=== PATIENT | male | born 1990 | race Caucasian/White ===

== ENCOUNTER 2016-12-30 10:23 | Emergency (ER) | payer MEDICAID, OTHER ==
[2016-12-30 10:32] VITALS: BP 134/85
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
[2016-12-30] MEDS ORDERED: NORCO 5/325 MG PO ONE (11:09)
[2016-12-30] MEDS ORDERED: NORCO 5/325 MG ONE (11:10)
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
[2016-12-30 11:26] VITALS: PULSE 100; O2SAT 98
== END 2016-12-30 11:25 | disposition home or self-care (01) ==
LOC: ED 10:23
DX: S42.021A Displaced fracture of shaft of right clavicle, initial encounter for closed fracture (principal); W18.09XA Striking against other object with subsequent fall, initial encounter; Y92.812 Truck as the place of occurrence of the external cause
CPT/HCPCS: 71020; 73000; 99284; A9270-GY

== ENCOUNTER 2017-01-01 14:45 | Emergency (ER) | payer OTHER ==
[2017-01-01] MEDS ORDERED: TORAdol 30 mg Injection IM ONE (15:07)
[2017-01-01] MEDS ORDERED: TORAdol 30 mg Injection ONE (15:13)
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
[2017-01-01 15:54] VITALS: BP 119/78; PULSE 78; O2SAT 100
== END 2017-01-01 15:53 | disposition home or self-care (01) ==
LOC: ED 14:45
DX: S42.001D Fracture of unspecified part of right clavicle, subsequent encounter for fracture with routine healing (principal); W19.XXXD Unspecified fall, subsequent encounter
CPT/HCPCS: 96372; 99283; 99284; J1885

== ENCOUNTER 2017-01-21 19:50 | Emergency (ER) | payer OTHER ==
[2017-01-21] MEDS ORDERED: NORCO 5/325 MG PO ONE (20:14)
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
[2017-01-21] MEDS ORDERED: NORCO 5/325 MG ONE (20:26)
[2017-01-21 21:16] VITALS: BP 133/75; PULSE 99
[2017-01-21 21:56] VITALS: O2SAT 99
--- NOTE | 2017-01-21 22:12 | XRAY ---
Indication: Pain. Comparison: None 3 views of the right shoulder demonstrates nondisplaced healing mid clavicle shaft fracture. No other bony, articular, or soft tissue abnormalities.
== END 2017-01-21 22:03 | disposition home or self-care (01) ==
LOC: ED 19:50
DX: S42.001A Fracture of unspecified part of right clavicle, initial encounter for closed fracture (principal); X50.0XXA Overexertion from strenuous movement or load, initial encounter
CPT/HCPCS: 73030; 99282; A9270-GY

== ENCOUNTER 2017-04-13 10:25 | Emergency (ER) | payer SELFPAY ==
[2017-04-13] MEDS ORDERED: MORPHINE SULFATE 10 MG/ML IV ONE (10:50)
[2017-04-13] MEDS ORDERED: BENADRYL 50 MG/ML IV ONE (10:50)
[2017-04-13] MEDS ORDERED: Sodium Chloride 0.9% 1000 ML 1,000 ML IV STA (10:50)
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
[2017-04-13 11:03] LABS: Collection Type VOID
[2017-04-13 11:04] LABS: Bilirubin NEGATIVE (NEGATIVE); COMPLETE URINE MICROSCOPIC? YES; Glucose NEGATIVE (NEGATIVE); Leukocyte Esterase NEGATIVE (NEGATIVE)
[2017-04-13 11:06] LABS: Mean Cell Volume 95.4 fl (78-100); Mean Corpuscular Hemoglobin 31.5 pg (26-32); Mean Platelet Volume 10.5 fl (6-9.5); Platelet Count 135 K/mm3 (150-450); Red Cell Distribution Width 14.6 % (11.5-14.0); White Blood Count 7.3 K/mm3 (4.0-10.5)
[2017-04-13] MEDS ORDERED: BENADRYL 50 MG/ML ONE (11:07)
[2017-04-13] MEDS ORDERED: MORPHINE SULFATE 10 MG/ML ONE (11:08)
[2017-04-13] MEDS ORDERED: Sodium Chloride 0.9% 1000 ML 1,000 ML ONE (11:08)
[2017-04-13 11:17] LABS: Bacteria RARE /HPF (NEGATIVE); Epithelial Cells RARE /HPF (FEW)
[2017-04-13 11:25] LABS: ALBUMIN 4.1 g/dL (3.4-5.0); ALKALINE PHOSPHATASE 127 U/L (46-116); ANION GAP 13.7 MEQ/L (5-15); BLOOD UREA NITROGEN 12 mg/dL (9-20); CHLORIDE 104 mEq/L (98-107); Carbon Dioxide 24.7 mEq/L (21-32); Glucose 87 MG/DL (70-110); SGOT/AST 84 U/L (15-37); SGPT/ALT 228 U/L (12-78); SODIUM 138 mEq/L (136-145); Total Protein 8.5 gm/dL (6.4-8.2)
[2017-04-13 11:37] LABS: ADD URINE CULTURE? NO (NO)
--- NOTE | 2017-04-13 12:04 | XRAY ---
Indication: Left flank pain. Multiple contiguous axial images obtained through the abdomen and pelvis without contrast using renal stone protocol. Comparison: November 12, 2013. Lung bases are clear. Heart is not enlarged. There is now a 3 mm calculus in the distal left ureter at least 3 cm proximal to the UVJ. No significant hydronephrosis or hydroureter. There are again multiple bilateral renal micro-calculi. Noncontrasted stomach and bowel loops appear nonobstructed. Normal appendix. No free fluid/air. Spleen is now enlarged today measuring 13 cm in greatest axial dimension. Remaining liver, gallbladder, pancreas, spleen, adrenal glands, kidneys, bladder, and aorta appear unremarkable for noncontrast exam. Osseous structures intact again with sacralized L5. Impression: 1. New 3 mm distal left ureter calculus. Again additional bilateral renal micro-calculi. 2. New splenomegaly. CT DI 11.40
[2017-04-13] MEDS ORDERED: MORPHINE SULFATE 4 MG INJ IV ONE (12:13)
[2017-04-13] MEDS ORDERED: TORAdol 30 mg Injection IV ONE (12:13)
[2017-04-13] MEDS ORDERED: TORAdol 30 mg Injection ONE (12:17)
[2017-04-13] MEDS ORDERED: MORPHINE SULFATE 4 MG INJ ONE (12:18)
[2017-04-13 12:48] VITALS: BP 144/77; PULSE 77; O2SAT 97
[2017-04-13 14:35] LABS: Total Cells Counted 100
[2017-04-13 14:36] LABS: Platelet Estimate NORMAL (NORMAL)
[2017-04-13 14:54] LABS: CHLAMYDIA URINE NEGATIVE; GC URINE NEGATIVE
[2017-04-14 13:14] LABS: Hepatitis B Surface Ab.Quant 7.61 mIU/mL (0.00-8.49)
[2017-04-14 13:16] LABS: Hepatitis B Sur Ag Screen Non Reactive (Non Reactive)
== END 2017-04-13 12:47 | disposition home or self-care (01) ==
LOC: ED 10:25
DX: N23 Unspecified renal colic (principal); N20.1 Calculus of ureter; R74.0 Nonspecific elevation of levels of transaminase and lactic acid dehydrogenase [LDH]; R10.9 Unspecified abdominal pain; Z87.442 Personal history of urinary calculi; R31.9 Hematuria, unspecified; M54.9 Dorsalgia, unspecified
CPT/HCPCS: 36000; 36415; 74176; 80053; 81000; 85025; 86317; 86592; 86701; 86702; 86803; 87340; 87389; 87491; 87591; 96360; 96374; 96375; 96376; 99284; J1200; J1885; J2270

== ENCOUNTER 2017-04-16 20:59 | Emergency (ER) | payer SELFPAY ==
[2017-04-16] MEDS ORDERED: MOTRIN 600 MG PO ONE (21:42)
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
[2017-04-16] MEDS ORDERED: MOTRIN 600 MG ONE (22:31)
[2017-04-16] MEDS ORDERED: NORCO 5/325 MG PO ONE (22:36)
[2017-04-16 22:39] VITALS: BP 144/78; PULSE 99
[2017-04-16] MEDS ORDERED: NORCO 5/325 MG ONE (22:42)
[2017-04-16 22:47] VITALS: O2SAT 99
--- NOTE | 2017-04-17 08:34 | XRAY ---
Indication: Pain and edema following injury 2 days ago. Comparison: None AP/lateral left knee intact with tiny nonspecific suprapatellar effusion and mild anterior soft tissue swelling. No other bony, articular, or soft tissue abnormalities.
== END 2017-04-16 23:01 | disposition home or self-care (01) ==
LOC: ED 20:59
DX: S83.92XA Sprain of unspecified site of left knee, initial encounter (principal); W20.8XXA Other cause of strike by thrown, projected or falling object, initial encounter
CPT/HCPCS: 73560; 99283; A9270-GY

== ENCOUNTER 2017-04-24 18:43 | Emergency (ER) | payer SELFPAY ==
[2017-04-24 18:56] VITALS: O2SAT 100
[2017-04-24] MEDS ORDERED: TORAdol 30 mg Injection IM ONE (19:14)
[2017-04-24] MEDS ORDERED: TORAdol 30 mg Injection ONE (19:23)
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
[2017-04-24] MEDS ORDERED: NORCO 5/325 MG PO ONE (19:28)
[2017-04-24 19:32] VITALS: BP 117/54; PULSE 104
[2017-04-24] MEDS ORDERED: NORCO 5/325 MG ONE (19:33)
== END 2017-04-24 19:49 | disposition home or self-care (01) ==
LOC: ED 18:43
DX: S83.92XA Sprain of unspecified site of left knee, initial encounter (principal); W20.8XXD Other cause of strike by thrown, projected or falling object, subsequent encounter; M25.562 Pain in left knee
CPT/HCPCS: 96372; 99284; J1885; A9270-GY

== ENCOUNTER 2017-05-09 10:33 | Emergency (ER) | payer SELFPAY ==
[2017-05-09] MEDS ORDERED: MOTRIN 600 MG PO ONE (10:55)
[2017-05-09] MEDS ORDERED: MOTRIN 600 MG ONE (10:58)
--- NOTE | 2017-05-09 11:01 | ERPHSYRPT ---
- History of Present Illness Time Seen by Provider: 05/09/17 10:46 Source: patient Patient Subjective Stated Complaint: pain left knee for four days. injury to knee while cutting trees one month ago. Triage Nursing Assessment: ambulated to room per self. elastic knee brace on left knee. knee and leg warm, normal color. good pedal pulse and cap refill. no swelling noted. Physician History: CC: left knee pain Hx: 26 y/o patient recently moved from [place]. He was cutting trees a month ago and injured the left knee. Xray neg. Has used a brace. Pain is worse, can't sleep at night, some swelling and popping. He was unable to see family doctor until his photo ID is mailed to him from [place]. No new injury. No redness, fever, warmth. Lower Extremities Pain: knee: left Allergies/Adverse Reactions: No Known Drug Allergies Allergy (Verified 05/09/17 10:44) Hx Tetanus, Diphtheria Vaccination/Date Given: Yes Hx Influenza Vaccination/Date Given: No Hx Pneumococcal Vaccination/Date Given: No - Review of Systems Constitutional: No Fever, No Chills Musculoskeletal: Injury (left knee), Joint Pain (left knee), No Back Pain, No Neck Pain Neurological: No Focal Weakness, No Parasthesia - Past Medical History Pertinent Past Medical History: Yes GI Medical History: Hepatitis Other Medical History: kidney stones - Past Surgical History Past Surgical History: Yes Other Surgical History: lithotripsy - Social History Smoking Status: Never smoker Exposure to second hand smoke: Yes Drug Use: none Patient Lives Alone: No - Nursing Vital Signs Nursing Vital Signs: Initial Vital Signs Temperature 97.5 F 05/09/17 10:39 Pulse Rate 92 H 05/09/17 10:39 Respiratory Rate 16 05/09/17 10:39 Blood Pressure 145/80 05/09/17 10:39 O2 Sat by Pulse Oximetry 100 05/09/17 10:39 Pain Scale Pain Intensity 7 - Physical Exam General Appearance: alert Eyes, Ears, Nose, Throat Exam: moist mucous membranes Neck Exam: supple Cardiovascular/Respiratory Exam: regular rate/rhythm Neuro/Tendon Exam: normal sensation, normal motor functions Mental Status Exam: alert, oriented x 3, cooperative Skin Exam: warm, dry, No rash SpO2 Interpretation: normal SpO2: 100 Oxygen Delivery: Room Air Comments: left knee tender and has mild effusion. No warmth or redness. Anterior drawer positive. - Course Nursing assessment & vital signs reviewed: Yes Ordered Tests: Active Orders 24 hr Category Date Time Status Florentin Bandage Application -[facility] STAT Care 05/09/17 10:55 Active Medication Summary Generic Name Dose Route Start Last Admin Trade Name Arjunq PRN Reason Stop Dose Admin Ibuprofen 600 mg 05/09/17 10:55 Motrin 600 Mg PO 05/09/17 10:56 STAT ONE - Progress Progress Note: 05/09/17 10:58 Will Rx motrin and use hydroxyzine for sleep. Will try florentin wrap instead of his brace. He understands need to follow up with FP or orthopedist. Counseled pt/family regarding: diagnosis, need for follow-up - Departure Time of Disposition: 10:59 Departure Disposition: Home Clinical Impression: Left knee sprain Qualifiers: Encounter type: subsequent encounter Involved ligament of knee: anterior cruciate ligament Qualified Code(s): S83.512D - Sprain of anterior cruciate ligament of left knee, subsequent encounter Condition: Stable Critical Care Time: No Referrals: DOCTOR,NO FAMILY [Primary Care Provider] - Instructions: Use an Elastic Bandage-Knee Sprain, Knee Sprain Additional Instructions: Rx ibuprofen three times a day. Rx hydroxyzine to use for sleep- no driving or operating machinery. You need to follow up with a family doctor for further care. Prescriptions: Hydroxyzine HCl 1 tab PO Q6H PRN PRN #15 tablet PRN Reason: rash,rest Ibuprofen 600 mg PO TID #24 tablet
[2017-05-09 11:11] VITALS: BP 148/86; PULSE 77; O2SAT 98
== END 2017-05-09 11:30 | disposition home or self-care (01) ==
LOC: ED 10:33
DX: S83.512D Sprain of anterior cruciate ligament of left knee, subsequent encounter (principal); M25.562 Pain in left knee
CPT/HCPCS: 99281; 99282; A9270-GY

== ENCOUNTER 2018-12-12 22:11 | Emergency (ER) | payer MEDICAID ==
[2018-12-12 23:15] VITALS: O2SAT 98
[2018-12-13] MEDS ORDERED: TORAdol 30 mg Injection IV ONE (00:16)
[2018-12-13] MEDS ORDERED: Sodium Chloride 0.9% 1000 ML 1,000 ML IV STA (00:16)
--- NOTE | 2018-12-13 00:20 | ERPHSYRPT ---
- History of Present Illness Time Seen by Provider: 12/13/18 00:02 Source: patient Exam Limitations: no limitations Patient Subjective Stated Complaint: pt states he has been having rt side pain since yesterday. states worse today. does have a hx of kidney stones Triage Nursing Assessment: pt alert and oriened, answers questions approp. pt ambulatory with steady gati noted. repsiraitons nonlabored with lungs cta. abd soft, pt reporst tenderness in lt lower abd. with palpation. bowel sounds present. urine yellow, clear. Physician History: 28-year-old white male with history of kidney stones arrives with bilateral flank and suprapubic region symptoms for 2 weeks which has been worse over the past several days he states he has had some nausea. Past medical history includes kidney stones, hepatitis Past surgical history includes lithotripsy Timing/Duration: other (symptoms for 2 weeks but worse since yesterday) Severity: moderate Modifying Factors: Improves With: nothing Associated Symptoms: nausea, abdominal pain (suprapubic abdominal pain), No vomiting, No shortness of breath, No heartburn, No diaphoresis, No cough, No chills, No chest pain, No fever, No headaches, No loss of appetite, No malaise, No rash, No syncope, No seizure, No weakness Allergies/Adverse Reactions: No Known Drug Allergies Allergy (Verified 12/12/18 22:59) Hx Tetanus, Diphtheria Vaccination/Date Given: Yes Hx Influenza Vaccination/Date Given: No Hx Pneumococcal Vaccination/Date Given: No Immunizations Up to Date: Yes - Review of Systems Constitutional: No Fever, No Chills Eyes: No Symptoms Ears, Nose, & Throat: No Symptoms Respiratory: No Cough, No Dyspnea Cardiac: No Chest Pain, No Edema, No Syncope Abdominal/Gastrointestinal: Abdominal Pain (ssuprapubic abdominal pain), Nausea , No Vomiting, No Diarrhea, No Constipation, No Hematemesis, No Hematochezia, No Melena, No Dysphagia, No Appetite Changes Genitourinary Symptoms: Flank Pain (bilateral flank pain) Musculoskeletal: No Back Pain, No Neck Pain Skin: No Rash Neurological: No Dizziness, No Focal Weakness, No Sensory Changes Psychological: No Symptoms Endocrine: No Symptoms All Other Systems: Reviewed and Negative - Past Medical History Pertinent Past Medical History: Yes GI Medical History: Hepatitis Other Medical History: kidney stones - Past Surgical History Past Surgical History: Yes Other Surgical History: lithotripsy - Social History Smoking Status: Never smoker Exposure to second hand smoke: Yes Drug Use: none Patient Lives Alone: No - Nursing Vital Signs Nursing Vital Signs: Initial Vital Signs Temperature 98.0 F 12/12/18 22:48 Pulse Rate 109 H 12/12/18 22:48 Respiratory Rate 18 12/12/18 22:48 Blood Pressure 155/92 12/12/18 22:48 O2 Sat by Pulse Oximetry 99 12/12/18 22:48 Pain Scale Pain Intensity 7 - Physical Exam General Appearance: mild distress, alert Eye Exam: PERRL/EOMI, eyes nml inspection Ears, Nose, Throat Exam: normal ENT inspection Neck Exam: normal inspection, non-tender, supple, full range of motion Respiratory Exam: normal breath sounds, lungs clear, No respiratory distress Cardiovascular Exam: regular rate/rhythm, normal heart sounds, normal peripheral pulses, capillary refill <2 sec Gastrointestinal/Abdomen Exam: soft, tenderness (suprapubic tenderness) Back Exam: normal inspection, normal range of motion, No CVA tenderness, No vertebral tenderness Extremity Exam: normal inspection, normal range of motion, pelvis stable Neurologic Exam: alert, oriented x 3, cooperative, piano and organ refinisher II-XII nml as tested, normal mood/affect, nml cerebellar function, nml station & gait, sensation nml, No motor deficits Skin Exam: normal color, warm, dry, No rash SpO2 Interpretation: normal (98%) SpO2: 98 - Course Nursing assessment & vital signs reviewed: Yes - CT Exams Abdomen/Pelvis CT Interpretation: Tele-radiologist Report (CT abdomen and pelvis impression 1. Nonobstructive bilateral renal calculi.2. no free air free fluid or focal mesenteric inflammation nonspecific gastrointestinal findings.. Slight thickwalled appearance of gallbladder may be artifact but could be correlated clinically) Ordered Tests: Active Orders 24 hr Category Date Time Status IV Insertion STAT Care 12/13/18 00:16 Active ABDOMEN AND PELVIS W/0 CONTRAS [CT] Stat Exams 12/13/18 00:17 Taken AMYLASE Stat Lab 12/13/18 00:16 Completed CBC W DIFF Stat Lab 12/13/18 00:16 Completed CMP Stat Lab 12/13/18 00:16 Completed LIPASE Stat Lab 12/13/18 00:16 Completed UA W/RFX UR CULTURE Stat Lab 12/13/18 01:15 Ordered Urine Triage Profile Stat Lab 12/13/18 01:15 Ordered Medication Summary Discontinued Medications Generic Name Dose Route Start Last Admin Trade Name Damon PRN Reason Stop Dose Admin Sodium Chloride 1,000 mls @ 999 mls/hr 12/13/18 00:16 12/13/18 00:24 Sodium Chloride 0.9% 1000 Ml IV 12/13/18 01:16 999 mls/hr .Q1H1M STA Administration Sodium Chloride Confirm 12/13/18 00:23 Sodium Chloride 0.9% 1000 Ml Administered 12/13/18 00:24 Dose 1,000 mls @ ud .ROUTE .STK-MED ONE Ketorolac Tromethamine 30 mg 12/13/18 00:16 12/13/18 00:25 Toradol 30 Mg Injection IV 12/13/18 00:17 30 mg STAT ONE Administration Ketorolac Tromethamine Confirm 12/13/18 00:23 Toradol 30 Mg Injection Administered 12/13/18 00:24 Dose 30 mg .ROUTE .STK-MED ONE Lab/Rad Data: Laboratory Result Diagrams 12/13/18 00:16 12/13/18 00:16 Laboratory Results 12/13/18 12/13/18 Range/Units 00:16 00:16 WBC 7.7 (4.0-10.5) K/mm3 RBC 4.73 (4.1-5.6) M/mm3 Hgb 15.3 (12.5-18.0) gm/dl Hct 44.3 (42-50) % MCV 93.7 (78-100) fl MCH 32.3 H (26-32) pg MCHC 34.5 (32-36) g/dl RDW 13.2 (11.5-14.0) % Plt Count 224 (150-450) K/mm3 MPV 8.8 (6-9.5) fl Gran % 36.7 (36.0-66.0) % Eos # (Auto) 0.66 H (0-0.5) Absolute Lymphs (auto) 3.41 (1.0-4.6) Absolute Monos (auto) 0.75 (0.0-1.3) Lymphocytes % 44.4 H (24.0-44.0) % Monocytes % 9.8 (0.0-12.0) % Eosinophils % 8.6 H (0.00-5.0) % Basophils % 0.5 (0.0-0.4) % Absolute Granulocytes 2.82 (1.4-6.9) Basophils # 0.04 (0-0.4) Sodium 141 (137-145) mmol/L Potassium 4.5 (3.5-5.1) mmol/L Chloride 103 (98-107) mmol/L Carbon Dioxide 26 (22-30) mmol/L Anion Gap 17.3 H (5-15) MEQ/L BUN 23 H (9-20) mg/dL Creatinine 0.86 (0.66-1.25) mg/dL Estimated GFR > 60.0 ML/MIN Glucose 77 (74-106) mg/dL Calcium 9.8 (8.4-10.2) mg/dL Total Bilirubin 0.50 (0.2-1.3) mg/dL AST 36 (17-59) U/L ALT 22 (0-50) U/L Alkaline Phosphatase 54 (38-126) U/L Serum Total Protein 7.7 (6.3-8.2) g/dL Albumin 4.5 (3.5-5.0) g/dL Amylase 86 (30-110) U/L Lipase 63 (23-300) U/L - Progress Progress: improved Progress Note: 12/13/18 01:55 28-year-old white male arrives with complaint of pain in his suprapubic region patient states has been going on for several weeks however it is worse last day or 2 has no vomiting no diarrhea CT of the abdomen impression 1 nonobstructing bilateral renal calculi. 2. No free air, free fluid or focal mesenteric inflammation. Nonspecific gastrointestinal findings. There is slight thickwalled appearance of the gallbladder which may be artifact but could be correlated clinically reviewing body attacks patient has some nonspecific fluid filled loops of small bowel there is no significant asymmetric dilatation to suggest obstruction there is no focal mesenteric inflammatory stranding there small nonspecific mesenteric lymph nodes. Patient's have slight prominence of the gallbladder wall which could be artifactual there is no pancreatic inflammation. Patient was nonobstructing small renal calculi seen bilaterally Patient is given Toradol 30 mg IV 1 L of normal saline he states he still has abdominal pain will go ahead and give patient morphine 4 Zofran 4 mg IV. The patient's urinalysis negative Patient's amylase within normal limits, lipase within normal limits. urine drug screen is positive for benzodiazerpine. 12/13/18 01:58 12/13/18 02:[address] patient on Naprosyn. Patient is stable will plan on discharging patient. - Departure Departure Disposition: Home Clinical Impression: Suprapubic abdominal pain, history of urolithiasis Condition: Fair Critical Care Time: No Referrals: DOCTOR,NO FAMILY [Primary Care Provider] - Additional Instructions: Return home. Plenty of fluids. Clear fluids only 24-48 hours if abdominal pain. Naprosyn 500 mg orally twice a day with food as needed for pain. Followup with your family (list) Return for acute distress or for severe symptoms.
[2018-12-13 00:22] LABS: BASOPHIL % 0.5 % (0.0-0.4); Basophil (Absolute #) 0.04 (0-0.4); Eosinophil % 8.6 % (0.00-5.0); Eosinophil (Absolute #) 0.66 (0-0.5); Granulocyte Absolute (ANC) 2.82 (1.4-6.9); Granulocytes % 36.7 % (36.0-66.0); Hematocrit 44.3 % (42-50); Hemoglobin 15.3 gm/dl (12.5-18.0); Lymphocyte (Absolute #) 3.41 (1.0-4.6); Lymphocytes % 44.4 % (24.0-44.0); Mean Cell Volume 93.7 fl (78-100); Mean Corpuscular Hemoglobin 32.3 pg (26-32); Mean Corpuscular Hgb Concent. 34.5 g/dl (32-36); Mean Platelet Volume 8.8 fl (6-9.5); Monocyte (Absolute #) 0.75 (0.0-1.3); Monocytes % 9.8 % (0.0-12.0); Platelet Count 224 K/mm3 (150-450); Red Blood Count 4.73 M/mm3 (4.1-5.6); Red Cell Distribution Width 13.2 % (11.5-14.0); White Blood Count 7.7 K/mm3 (4.0-10.5)
[2018-12-13] MEDS ORDERED: TORAdol 30 mg Injection ONE (00:23)
[2018-12-13] MEDS ORDERED: Sodium Chloride 0.9% 1000 ML 1,000 ML ONE (00:23)
[2018-12-13 00:49] LABS: ALBUMIN 4.5 g/dL (3.5-5.0); ALKALINE PHOSPHATASE 54 U/L (38-126); AMYLASE 86 U/L (30-110); ANION GAP 17.3 MEQ/L (5-15); BLOOD UREA NITROGEN 23 mg/dL (9-20); CHLORIDE 103 mmol/L (98-107); Calcium 9.8 mg/dL (8.4-10.2); Carbon Dioxide 26 mmol/L (22-30); Creatinine 1 0.86 mg/dL (0.66-1.25); Glucose 77 mg/dL (74-106); LIPASE 63 U/L (23-300); Potassium 4.5 mmol/L (3.5-5.1); SGOT/AST 36 U/L (17-59); SGPT/ALT 22 U/L (0-50); SODIUM 141 mmol/L (137-145); Total Protein 7.7 g/dL (6.3-8.2)
[2018-12-13] MEDS ORDERED: MORPHINE SULFATE 4 MG INJ IV ONE (01:51)
[2018-12-13] MEDS ORDERED: Zofran 4 MG/2 ML VIAL IV ONE (01:51)
[2018-12-13] MEDS ORDERED: Zofran 4 MG/2 ML VIAL ONE (01:52)
[2018-12-13] MEDS ORDERED: MORPHINE SULFATE 4 MG INJ ONE (01:53)
[2018-12-13 04:22] VITALS: BP 121/89; PULSE 87
[2018-12-13 04:59] LABS: Amphetamine,Urine NEGATIVE (NEGATIVE); Barbiturate,Urine NEGATIVE (NEGATIVE); Benzodiazepine,Urine POSITIVE (NEGATIVE); Cocaine,Urine NEGATIVE (NEGATIVE); Methadone,Urine NEGATIVE (NEGATIVE); Opiate,Urine NEGATIVE (NEGATIVE); PCP,Urine NEGATIVE (NEGATIVE); THC,Urine NEGATIVE (NEGATIVE)
[2018-12-13 05:00] LABS: Appearance CLEAR (CLEAR); Bilirubin NEGATIVE (NEGATIVE); Blood NEGATIVE Ery/ul (0-5); Glucose NEGATIVE (NEGATIVE); Ketones NEGATIVE (NEGATIVE); Leukocyte Esterase NEGATIVE (NEGATIVE); Nitrite NEGATIVE (NEGATIVE); Protein,Urine Dip NEGATIVE (Negative); Urobilinogen 2 mg/dL (0-1)
--- NOTE | 2018-12-13 09:05 | XRAY ---
Indication: Right flank pain. Multiple contiguous axial images obtained through the abdomen and pelvis without contrast as ordered. Comparison: CT renal stone study April 13, 2017. Lung bases remain clear. Heart is not enlarged. Noncontrasted stomach and bowel loops appear nonobstructed. Normal appendix. There is now moderate diffuse scattered colonic fecal debris throughout. No free fluid/air. Stable nonobstructing bilateral renal micro-calculi. Remaining liver, gallbladder, pancreas, spleen, adrenal glands, kidneys, ureters, bladder, and aorta appear unremarkable for noncontrast exam. Osseous structures intact. Impression: 1. New fecal stasis without obstruction. 2. Stable nonobstructing bilateral renal micro-calculi. 3. Remaining CT abdomen/pelvis without contrast exam is negative. Comment: Preliminary interpretation was made by [facility]. No critical discrepancy. CT DI 11.79
== END 2018-12-13 02:31 | disposition home or self-care (01) ==
LOC: ED 22:11
DX: R10.2 Pelvic and perineal pain (principal); F15.90 Other stimulant use, unspecified, uncomplicated; F19.90 Other psychoactive substance use, unspecified, uncomplicated
CPT/HCPCS: 36000; 36415; 74176; 80053; 80307; 81001; 82150; 83690; 85025; 96360; 96374; 99284; J1885; J2270; J2405

== ENCOUNTER 2019-02-17 20:51 | Emergency (ER) | payer SELFPAY ==
[2019-02-17] MEDS ORDERED: Sodium Chloride 0.9% 1000 ML 1,000 ML IV STA (21:33)
[2019-02-17] MEDS ORDERED: TORAdol 30 mg Injection IV ONE (21:33)
[2019-02-17] MEDS ORDERED: TORAdol 30 mg Injection ONE (21:39)
[2019-02-17] MEDS ORDERED: Sodium Chloride 0.9% 1000 ML 1,000 ML ONE (21:40)
--- NOTE | 2019-02-17 21:40 | ERPHSYRPT ---
- History of Present Illness Time Seen by Provider: 02/17/19 21:18 Historian: patient Exam Limitations: no limitations Patient Subjective Stated Complaint: pt reports history of kidney stones, states 4-5 days ago he began having some abdominal and right flank pain as well as some pressure to the genital region. pt states he is experiencing some urinary retention. Triage Nursing Assessment: pt is aox3, pupils perrl, pt appears in no distress, afebrile, resps easy and non labored, radial pulses strong and equal, cap refill < 3 seconds, pt abd soft tender with palpation to the lower quadrants bilat, bowel sounds present and normoactive x 4, pt skin pink warm dry. Physician History: Pt started c/o right flank pain 4-5 days ago, radiating to his right groin and testicle, denies any injury, nausea, vomiting, diarrhea, urinary complaints. Timing/Duration: day(s) (4-5) Activities at Onset: none Quality: sharpness Abdominal Pain Onset Location: RUQ, flank (right) Severity of Pain-Max: severe Severity of Pain-Current: moderate Modifying Factors: Improves With: nothing Associated Symptoms: back Previous symptoms: same symptoms as today Allergies/Adverse Reactions: No Known Drug Allergies Allergy (Verified 02/17/19 21:14) Hx Tetanus, Diphtheria Vaccination/Date Given: Yes Hx Influenza Vaccination/Date Given: No Hx Pneumococcal Vaccination/Date Given: No Immunizations Up to Date: Yes - Review of Systems Constitutional: No Symptoms Ears, Nose, & Throat: No Symptoms Respiratory: No Symptoms Cardiac: No Symptoms Abdominal/Gastrointestinal: Abdominal Pain, Nausea, Vomiting Genitourinary Symptoms: Flank Pain (right) Musculoskeletal: No Symptoms Skin: No Symptoms Neurological: No Symptoms All Other Systems: Reviewed and Negative - Past Medical History Pertinent Past Medical History: Yes GI Medical History: Hepatitis History: Other Other Medical History: kidney stones - Past Surgical History Past Surgical History: Yes Other Surgical History: lithotripsy - Social History Smoking Status: Never smoker Exposure to second hand smoke: Yes Drug Use: none Patient Lives Alone: No - Nursing Vital Signs Nursing Vital Signs: Initial Vital Signs Temperature 98 F 02/17/19 21:03 Pulse Rate 107 H 02/17/19 21:03 Respiratory Rate 18 02/17/19 21:03 Blood Pressure 162/95 02/17/19 21:03 O2 Sat by Pulse Oximetry 99 02/17/19 21:03 Pain Scale Pain Intensity 6 - Physical Exam General Appearance: no apparent distress Eye Exam: eyes nml inspection Ears, Nose, Throat Exam: normal ENT inspection, TMs normal, pharynx normal, moist mucous membranes Neck Exam: normal inspection, non-tender, supple, carotid bruit, No JVD Respiratory Exam: normal breath sounds, lungs clear, airway intact Cardiovascular Exam: normal heart sounds, normal peripheral pulses, pulse deficit Gastrointestinal/Abdomen Exam: soft, normal bowel sounds, tenderness (RLQ, and pelvis), No distention, No mass, No guarding, No ecchymosis, No rebound, No hernia Back Exam: normal inspection, normal range of motion, CVA tenderness (left, mild ), No vertebral tenderness Extremity Exam: normal inspection, No calf tenderness, No desmond's sign, No pedal edema Neurologic Exam: alert, oriented x 3, cooperative, normal mood/affect Skin Exam: normal color, warm, dry, No rash, No petechiae, No diaphoresis Lymphatic Exam: No adenopathy SpO2 Interpretation: normal SpO2: 99 O2 Delivery: Room Air - Course Nursing assessment & vital signs reviewed: Yes - CT Exams Abdomen/Pelvis CT Interpretation: Negative, Tele-radiologist Report Ordered Tests: Active Orders 24 hr Category Date Time Status IV Insertion STAT Care 02/17/19 21:33 Active ABDOMEN AND PELVIS W/0 CONTRAS [CT] Stat Exams 02/17/19 21:34 Taken CBC W DIFF Stat Lab 02/17/19 22:00 Completed CMP Stat Lab 02/17/19 22:00 Completed LIPASE Stat Lab 02/17/19 22:00 Completed UA W/RFX UR CULTURE Stat Lab 02/17/19 22:00 Completed Urine Triage Profile Stat Lab 02/17/19 22:00 Completed Medication Summary Discontinued Medications Generic Name Dose Route Start Last Admin Trade Name Freq PRN Reason Stop Dose Admin Sodium Chloride 1,000 mls @ 999 mls/hr 02/17/19 21:33 02/17/19 21:51 Sodium Chloride 0.9% 1000 Ml IV 02/17/19 22:33 999 mls/hr .Q1H1M STA Administration Sodium Chloride Confirm 02/17/19 21:40 Sodium Chloride 0.9% 1000 Ml Administered 02/17/19 21:41 Dose 1,000 mls @ ud .ROUTE .STK-MED ONE Ketorolac Tromethamine 30 mg 02/17/19 21:33 02/17/19 21:50 Toradol 30 Mg Injection IV 02/17/19 21:34 30 mg STAT ONE Administration Ketorolac Tromethamine Confirm 02/17/19 21:39 Toradol 30 Mg Injection Administered 02/17/19 21:40 Dose 30 mg .ROUTE .STK-MED ONE Lab/Rad Data: Laboratory Result Diagrams 02/17/19 22:00 02/17/19 22:00 Laboratory Results 02/17/19 02/17/19 02/17/19 Range/Units 22:00 22:00 22:00 WBC (4.0-10.5) K/mm3 RBC (4.1-5.6) M/mm3 Hgb (12.5-18.0) gm/dl Hct (42-50) % MCV (78-100) fl MCH (26-32) pg MCHC (32-36) g/dl RDW (11.5-14.0) % Plt Count (150-450) K/mm3 MPV (6-9.5) fl Gran % (36.0-66.0) % Eos # (Auto) (0-0.5) Absolute Lymphs (auto) (1.0-4.6) Absolute Monos (auto) (0.0-1.3) Lymphocytes % (24.0-44.0) % Monocytes % (0.0-12.0) % Eosinophils % (0.00-5.0) % Basophils % (0.0-0.4) % Absolute Granulocytes (1.4-6.9) Basophils # (0-0.4) Sodium 142 (137-145) mmol/L Potassium 4.4 (3.5-5.1) mmol/L Chloride 104 (98-107) mmol/L Carbon Dioxide 28 (22-30) mmol/L Anion Gap 14.4 (5-15) MEQ/L BUN 19 (9-20) mg/dL Creatinine 0.94 (0.66-1.25) mg/dL Estimated GFR > 60.0 ML/MIN Glucose 111 H (74-106) mg/dL Calcium 10.4 H (8.4-10.2) mg/dL Total Bilirubin 0.50 (0.2-1.3) mg/dL AST 27 (17-59) U/L ALT 23 (0-50) U/L Alkaline Phosphatase 67 (38-126) U/L Serum Total Protein 8.3 H (6.3-8.2) g/dL Albumin 4.8 (3.5-5.0) g/dL Lipase 50 (23-300) U/L Urine Color YELLOW (YELLOW) Urine Appearance CLEAR (CLEAR) Urine pH 6.0 (5-6) Ur Specific [place] 1.014 (1.005-1.025) Urine Protein NEGATIVE (Negative) Urine Ketones NEGATIVE (NEGATIVE) Urine Blood NEGATIVE (0-5) Mookie/ul Urine Nitrite NEGATIVE (NEGATIVE) Urine Bilirubin NEGATIVE (NEGATIVE) Urine Urobilinogen NEGATIVE (0-1) mg/dL Ur Leukocyte Esterase NEGATIVE (NEGATIVE) Urine WBC (Auto) NONE (0-5) /HPF Urine RBC (Auto) NONE (0-2) /HPF U Epithel Cells (Auto) NONE (FEW) /HPF Urine Bacteria (Auto) NONE (NEGATIVE) /HPF Urine Culture Reflexed NO (NO) Urine Glucose NEGATIVE (NEGATIVE) mg/dL Urine Opiates Level NEGATIVE (NEGATIVE) Ur Methadone NEGATIVE (NEGATIVE) Urine Barbiturates NEGATIVE (NEGATIVE) Ur Phencyclidine (PCP) NEGATIVE (NEGATIVE) Urine Amphetamine NEGATIVE (NEGATIVE) U Benzodiazepine Level POSITIVE (NEGATIVE) Urine Cocaine NEGATIVE (NEGATIVE) Urine Marijuana (THC) NEGATIVE (NEGATIVE) 02/17/19 Range/Units 22:00 WBC 7.0 (4.0-10.5) K/mm3 RBC 5.24 (4.1-5.6) M/mm3 Hgb 16.9 (12.5-18.0) gm/dl Hct 48.0 (42-50) % MCV 91.6 (78-100) fl MCH 32.3 H (26-32) pg MCHC 35.2 (32-36) g/dl RDW 12.1 (11.5-14.0) % Plt Count 211 (150-450) K/mm3 MPV 9.0 (6-9.5) fl Gran % 39.9 (36.0-66.0) % Eos # (Auto) 0.45 (0-0.5) Absolute Lymphs (auto) 3.22 (1.0-4.6) Absolute Monos (auto) 0.53 (0.0-1.3) Lymphocytes % 45.8 H (24.0-44.0) % Monocytes % 7.5 (0.0-12.0) % Eosinophils % 6.4 H (0.00-5.0) % Basophils % 0.4 (0.0-0.4) % Absolute Granulocytes 2.80 (1.4-6.9) Basophils # 0.03 (0-0.4) Sodium (137-145) mmol/L Potassium (3.5-5.1) mmol/L Chloride (98-107) mmol/L Carbon Dioxide (22-30) mmol/L Anion Gap (5-15) MEQ/L BUN (9-20) mg/dL Creatinine (0.66-1.25) mg/dL Estimated GFR ML/MIN Glucose (74-106) mg/dL Calcium (8.4-10.2) mg/dL Total Bilirubin (0.2-1.3) mg/dL AST (17-59) U/L ALT (0-50) U/L Alkaline Phosphatase (38-126) U/L Serum Total Protein (6.3-8.2) g/dL Albumin (3.5-5.0) g/dL Lipase (23-300) U/L Urine Color (YELLOW) Urine Appearance (CLEAR) Urine pH (5-6) Ur Specific [place] (1.005-1.025) Urine Protein (Negative) Urine Ketones (NEGATIVE) Urine Blood (0-5) Mookie/ul Urine Nitrite (NEGATIVE) Urine Bilirubin (NEGATIVE) Urine Urobilinogen (0-1) mg/dL Ur Leukocyte Esterase (NEGATIVE) Urine WBC (Auto) (0-5) /HPF Urine RBC (Auto) (0-2) /HPF U Epithel Cells (Auto) (FEW) /HPF Urine Bacteria (Auto) (NEGATIVE) /HPF Urine Culture Reflexed (NO) Urine Glucose (NEGATIVE) mg/dL Urine Opiates Level (NEGATIVE) Ur Methadone (NEGATIVE) Urine Barbiturates (NEGATIVE) Ur Phencyclidine (PCP) (NEGATIVE) Urine Amphetamine (NEGATIVE) U Benzodiazepine Level (NEGATIVE) Urine Cocaine (NEGATIVE) Urine Marijuana (THC) (NEGATIVE) - Progress Progress: unchanged Progress Note: 07/21/19 23:59 Pt was educated about CT and lab results, he states Toradol did not control his pain, no vomiting, fever, other complaints, he is being discharged on [facility] [place] as needed to rest x 2-3 days, and follow up with his physician in 2-3 days. Counseled pt/family regarding: lab results, diagnosis, need for follow-up, rad results - Departure Departure Disposition: Home Clinical Impression: Back pain Qualifiers: Back pain location: low back pain Chronicity: acute Back pain laterality: right Sciatica presence: without sciatica Qualified Code(s): M54.5 - Low back pain Condition: Stable Critical Care Time: No Referrals: DOCTOR,NO FAMILY [Primary Care Provider] - Instructions: Kidney Stones (DC), Flank Pain, Low Back Pain in Adults Additional Instructions: Rest x 2-3 days, apply moist heat to painful areas, and follow up with your physician in 2-3 days. Prescriptions: Hydrocodone/APAP 5-325 Tab^^^ [[place] 5-325 Tablet^^^] 1 tab PO Q6HPRN PRN #10 tablet MDD 6 PRN Reason: Pain
[2019-02-17 22:02] LABS: BASOPHIL % 0.4 % (0.0-0.4); Basophil (Absolute #) 0.03 (0-0.4); Eosinophil % 6.4 % (0.00-5.0); Eosinophil (Absolute #) 0.45 (0-0.5); Granulocytes % 39.9 % (36.0-66.0); Hemoglobin 16.9 gm/dl (12.5-18.0); Lymphocyte (Absolute #) 3.22 (1.0-4.6); Lymphocytes % 45.8 % (24.0-44.0); Mean Cell Volume 91.6 fl (78-100); Mean Corpuscular Hemoglobin 32.3 pg (26-32); Mean Corpuscular Hgb Concent. 35.2 g/dl (32-36); Monocyte (Absolute #) 0.53 (0.0-1.3); Monocytes % 7.5 % (0.0-12.0); Platelet Count 211 K/mm3 (150-450); Red Blood Count 5.24 M/mm3 (4.1-5.6); Red Cell Distribution Width 12.1 % (11.5-14.0)
[2019-02-17 22:07] LABS: Appearance CLEAR (CLEAR); Bilirubin NEGATIVE (NEGATIVE); Blood NEGATIVE Ery/ul (0-5); Glucose NEGATIVE (NEGATIVE); Ketones NEGATIVE (NEGATIVE); Leukocyte Esterase NEGATIVE (NEGATIVE); Nitrite NEGATIVE (NEGATIVE); Protein,Urine Dip NEGATIVE (Negative); Specific Gravity 1.014 (1.005-1.025); Urobilinogen NEGATIVE mg/dL (0-1)
[2019-02-17 22:20] LABS: ALBUMIN 4.8 g/dL (3.5-5.0); ALKALINE PHOSPHATASE 67 U/L (38-126); ANION GAP 14.4 MEQ/L (5-15); BLOOD UREA NITROGEN 19 mg/dL (9-20); CHLORIDE 104 mmol/L (98-107); Calcium 10.4 mg/dL (8.4-10.2); Carbon Dioxide 28 mmol/L (22-30); Creatinine 1 0.94 mg/dL (0.66-1.25); Glucose 111 mg/dL (74-106); LIPASE 50 U/L (23-300); Potassium 4.4 mmol/L (3.5-5.1); SGOT/AST 27 U/L (17-59); SGPT/ALT 23 U/L (0-50); SODIUM 142 mmol/L (137-145); Total Protein 8.3 g/dL (6.3-8.2)
[2019-02-17 22:21] LABS: Amphetamine,Urine NEGATIVE (NEGATIVE); Barbiturate,Urine NEGATIVE (NEGATIVE); Benzodiazepine,Urine POSITIVE (NEGATIVE); Cocaine,Urine NEGATIVE (NEGATIVE); Methadone,Urine NEGATIVE (NEGATIVE); Opiate,Urine NEGATIVE (NEGATIVE); PCP,Urine NEGATIVE (NEGATIVE); THC,Urine NEGATIVE (NEGATIVE)
[2019-02-18 00:06] VITALS: BP 118/72
[2019-02-18] MEDS ORDERED: NORCO 5/325 MG PO ONE (00:10)
[2019-02-18] MEDS ORDERED: NORCO 5/325 MG ONE (00:12)
[2019-02-18 00:22] VITALS: PULSE 74; O2SAT 96
--- NOTE | 2019-02-18 11:37 | XRAY ---
Exam: CT of the abdomen and pelvis without IV contrast from 02/17/2019. CTDI: 10.93 Comparison: CT of the abdomen and pelvis without IV contrast from 12/13/2018. Indication: 28-year-old male with history of right flank pain, urinary retention, and pressure. History of prior lithotripsy for stone. Technique: Non-IV contrast axial images were obtained through the abdomen and pelvis. Reconstructed coronal and sagittal images were created and reviewed. Findings: The visualized lung bases appear clear. Assessment of the solid organs is limited without the use of IV contrast, but no definite abnormality of the liver, spleen, pancreas, or adrenal glands is seen. The gallbladder is partially distended. No dense calcifications are seen within it. I see some small nonobstructing renal calculi within the lower pole of each kidney which do not represent a significant interval change from 12/13/2018. There is no evidence of hydronephrosis or other definite renal abnormality. The visualized ureters appear of normal diameter without ureterolith. No urinary bladder stone is seen. The abdominal aorta is of normal diameter. No abnormal retroperitoneal lymphadenopathy is seen. There is no free intraperitoneal air present. No ventral abdominal wall hernia is seen. I note a 1.1 cm in width low attenuation lesion within the subcutaneous tissues of the anterior aspect of the right upper quadrant which is unchanged and likely represents a small sebaceous cyst. This measures an average of +12.25 Hounsfield units. Correlate clinically. There is a moderate amount of scattered stool seen throughout the colon. There is no evidence of bowel obstruction. The appendix is seen and appears unremarkable. No pelvic mass or enlarged pelvic lymph nodes are seen. The urinary bladder appears unremarkable. Both the seminal vesicles and prostate gland appear unremarkable. The prostate gland measures a maximum of 4.2 cm in width on axial image #77. The skeleton reveals no acute fracture or aggressive bone lesion. 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 This is unchanged. Impression: 1. I again note a few small nonobstructing calculi within the lower pole of each kidney representing no significant change from 12/13/2018. There is no evidence of acute obstructive uropathy, hydronephrosis, or ureteral stone. Nor do I see a urinary bladder stone. 2. No other acute process is seen within the abdomen or pelvis.
== END 2019-02-18 00:24 | disposition home or self-care (01) ==
LOC: ED 20:51
DX: M54.5 Low back pain (principal); R10.11 Right upper quadrant pain; R10.9 Unspecified abdominal pain; R11.2 Nausea with vomiting, unspecified
CPT/HCPCS: 36000; 36415; 74176; 80053; 80307; 81001; 83690; 85025; 96360; 96374; 99284; J1885; A9270-GY

== ENCOUNTER 2021-12-12 16:20 | Emergency (ER) | payer MEDICAID ==
--- NOTE | 2021-12-12 16:23 | ERPHSYRPT ---
- History of Present Illness Time Seen by Provider: 12/12/21 16:23 Source: patient Exam Limitations: no limitations Physician History: This is a 31-year-old right-handed white male who was using a pocket knife and he was cutting a plastic tie and was cutting towards him it slipped and cut into the first webspace of his left hand. There is no active bleeding and he is neurovascular intact and his tendons are intact. However his hands are very dirty and he has not had a recent tetanus shot. Method of Injury: other (Accidental cut with a knife) Quality: aching, throbbing Severity of Pain-Max: moderate Severity of Pain-Current: moderate Extremities Pain Location: hand: left (First webspace) Modifying Factors: Improves With: movement Associated Symptoms: none Allergies/Adverse Reactions: No Known Drug Allergies Allergy (Verified 02/17/19 21:14) Hx Tetanus, Diphtheria Vaccination/Date Given: Yes Hx Influenza Vaccination/Date Given: No Hx Pneumococcal Vaccination/Date Given: No Travel Risk - International Travel Have you traveled outside of the country in past 3 weeks: No - Coronavirus Screening Are you exhibiting any of the following symptoms?: No Close contact with a COVID-19 positive Pt in past 14-21 Days: No - Review of Systems Constitutional: No Symptoms Eyes: No Symptoms Ears, Nose, & Throat: No Symptoms Respiratory: No Symptoms Cardiac: No Symptoms Abdominal/Gastrointestinal: No Symptoms Genitourinary Symptoms: No Symptoms Musculoskeletal: No Symptoms Skin: Other (Laceration left hand) Psychological: No Symptoms Endocrine: No Symptoms Hematologic/Lymphatic: No Symptoms Immunological/Allergic: No Symptoms All Other Systems: Reviewed and Negative - Past Medical History Pertinent Past Medical History: Yes GI Medical History: Hepatitis History: Other Other Medical History: kidney stones - Past Surgical History Past Surgical History: Yes Other Surgical History: lithotripsy - Social History Smoking Status: Never smoker Exposure to second hand smoke: Yes Drug Use: none Patient Lives Alone: No - Nursing Vital Signs Nursing Vital Signs: Initial Vital Signs Temperature 97.9 F 12/12/21 16:24 Pulse Rate 97 H 12/12/21 16:24 Respiratory Rate 20 12/12/21 16:24 Blood Pressure 162/97 12/12/21 16:24 O2 Sat by Pulse Oximetry 97 12/12/21 16:24 Pain Scale Pain Intensity 6 - Physical Exam General Appearance: no apparent distress, alert, anxiety Eyes, Ears, Nose, Throat Exam: normal ENT inspection, moist mucous membranes Neck Exam: normal inspection, non-tender, supple, full range of motion Cardiovascular/Respiratory Exam: chest non-tender, no respiratory distress Abdominal Exam: non-tender Back Exam: normal inspection, normal range of motion, No CVA tenderness, No vertebral tenderness Shoulder Exam: normal inspection, non-tender, no evidence of injury, normal ROM Elbow/Forearm Exam: normal inspection, non-tender, no evidence of injury, normal ROM Wrist Exam: normal inspection, non-tender, no evidence of injury, normal ROM Hand Exam: normal ROM, laceration (1/2 cm laceration dorsal aspect first webspace. No foreign body. No bleeding. Patient is neurovascularly intact. Patient tendon function is intact) Neuro/Tendon Exam: normal sensation, normal motor functions, normal tendon functions, responds to pain, no evidence tendon injury Mental Status Exam: alert, oriented x 3, cooperative Skin Exam: warm, dry, laceration (See above) SpO2 Interpretation: normal O2 Delivery: Room Air - Course Nursing assessment & vital signs reviewed: Yes - Progress Progress: unchanged, pain not gone completely Progress Note: 12/12/21 16:42 Medical decision making: This patient has a low small laceration to the first webspace, dorsal aspect of his left hand. The blade did penetrate in a distance. There is no active bleeding. He did this with dirty hands. There is no evidence of any foreign body. There is no evidence of nerve or tendon damage. I feel the patient would be best served by not closing this 0.5 cm laceration site to help prevent him from having future infection. The area was cleaned well with Hibiclens solution. Bandage was placed overlying this laceration site after drying the site. Patient will receive Adacel tetanus injection and given a prescription for Keflex. Counseled pt/family regarding: diagnosis - Departure Departure Disposition: Home Clinical Impression: Laceration of left hand Condition: Stable Critical Care Time: No Referrals: DOCTOR,NO FAMILY [Primary Care Provider] - Follow up/PCP as directed Additional Instructions: Do not apply ointments to the left hand laceration site. Keep the laceration s ite clean daily with soap and water. Take the antibiotics as prescribed. Cover the laceration skin site with a bandage. If you are working outside or could possibly be exposed to dirt or grass, cover the site with a bandage then a glove while working. Soak the left hand 2 times a day in warm soapy water or warm Epson salts. Prescriptions: Hydrocodone/APAP 5/325 [[place] 5/325 mg] 1 each PO Q8H PRN PRN #6 tablet MDD 3 PRN Reason: Pain Cephalexin Mh 500 mg [Keflex 500 mg] 500 mg PO TID #21 cap
[2021-12-12 16:28] VITALS: BP 162/97; PULSE 97; O2SAT 97
[2021-12-12] MEDS ORDERED: Adacel Vial IM ONE ×2 (16:38→16:40)
[2021-12-12] MEDS ORDERED: KEFLEX 500 MG PO ONE (16:38)
[2021-12-12] MEDS ORDERED: KEFLEX 500 MG ONE (16:40)
== END 2021-12-12 16:57 | disposition home or self-care (01) ==
LOC: ED 16:20
DX: S61.412A Laceration without foreign body of left hand, initial encounter (principal); W26.0XXA Contact with knife, initial encounter; M79.642 Pain in left hand; Z79.891 Long term (current) use of opiate analgesic
CPT/HCPCS: 90471; 90715; 99283; A9270-GY